=== PATIENT | female | born 1985 | race Caucasian/White ===

== ENCOUNTER 2018-09-10 10:10 | Emergency (ER) | payer BC ==
--- OUTSIDE RECORDS SUMMARY | 2018-09-10 10:19 | XMS REPORT ---
:1985 External Reference #:[id number] Author Organization [facility] Address [address], [address] [place] [address] Phone [phone] Care Team Providers Name Role Phone Yuliana Argueta, AMBROCIOBC, CIVIL PROJECT ENGINEER, Ibdedra Care Team Information Foundation Director Unavailable Yuliana Argueta, AMENA, CIVIL PROJECT ENGINEER, Ibclc Primary Care Physician Unavailable Payers Type Date Identification Numbers Payment Provider Subscriber Commercial Effective: Policy Number: Brandt Melendez 2011 [id number] Group Name: [facility] [address] [address] PayID: [id number] [place] [address] Problems Date Description Provider Status Onset: 03/19/2012 Langston's esophagus Heaven Vivas VICE CHAIRMAN Active Onset: 03/19/2012 Hypothyroidism Heaven Vivas NP Active Onset: 03/19/2012 Gastroesophageal reflux disease Heaven Vivas NP Active Onset: 05/22/2018 Gastro-esophageal reflux disease with Leo Luna MD Active esophagitis Onset: 05/22/2018 Atrophic gastritis Leo Luna MD Active Onset: 05/22/2018 Diaphragmatic hernia Leo Luna MD Active Onset: 04/17/2018 Helicobacter pylori Leo Luna MD Active Onset: 04/17/2018 Sore throat symptom Leo Luna MD Active Family History Date Family Member(s) Problem(s) Comments Onset: (2011) General H-Pylori General Thyroid Nodules Father Langston's Mother Diverticulitis Maternal Grandmother due to () Diverticulitis Aunt Unknown Aunt pedigree diagram drawn out Document: 01/08/18 - and scanned to chart Family Tree/HX Social History Type Date Description Comments Marital Status Lives With Lives With Daughter Lives With Son Home Environment Lives With Spouse Diet Healthy, Well Balanced Occupation Teacher Work Status Currently Working ADL's/IADL's Independent with all ADL's Cigarette Use Never Smoked Cigarettes Smokeless Tobacco Never Used Smokeless Tobacco ETOH Use Drinks Alcoholic Beverages Rarely Smoking Patient denies history of smoking Recreational Drug Use Never Used Drugs Daily Caffeine Consumes on average 1 cup of regular coffee per day Allergies, Adverse Reactions, Alerts Date Description Reaction Status Severity Comments 01/16/2015 NKDA active Medications Medication Date Status Form Strength Qnty SIG Indications Ordering Provider Mucinex 09/02 Active Tablets ER 600mg 30tab 1 tab by J06.9 Nohemi 12HR s mouth twice a MD Dante day congestion take with lots of fluids Saline Nasal 09/02 Active Solution 0.65% 1unit 2 sprays J06.9 Nohemi Pace s intranasal MD Dante every 2 hours congestion or nasal dryness Levothyroxine 06/02 Active Tablets 88mcg 90tab 1 tab by Kendall s mouth every Yuliana, morning one PNP-BC, an empty CIVIL PROJECT ENGINEER, stomach. do Ibclc not eat for 60mins after. Multi For Her Active Tablets 1 tab by Unknown /0000 mouth every daily Vitamin D-1000 Active Tablets 1000Unit 1 by mouth Unknown Maximum /0000 every day Strength Ketoconazole 04/07 Hx Shampoo 2% 120ml use it twice L21.0 Kendall a week Yuliana, - PNP-BC, 05/22 CIVIL PROJECT ENGINEER Ibclc Ibuprofen 11/05 Hx Tablets 800mg 60tab 1 tab by S92.592A Kendall s mouth three Yuliana - times a day PNP-BC, 05/22 as needed CIVIL PROJECT ENGINEER Ibclc Ibuprofen 10/02 Hx Tablets 600mg 30tab 1 tab three Kendall s times a day Yuliana, - for 7 days PNP-BC, 05/22 then as CIVIL PROJECT ENGINEER needed Ibclc Keflex 10/02 Hx Capsules 500mg 28cap 1 by mouth Kendall s four times a Yuliana, - day for 7 PNP-BC, 05/22 days CIVIL PROJECT ENGINEER Ibclc Augmentin 07/29 Hx Tablets 875-125mg 20tab 1 tab by Kendall, s mouth twice a Yuliana, - day for 10 PNP-BC, 10/02 days CIVIL PROJECT ENGINEER, Ibclc Work 01/14 Hx Myrtle january Elier return to [place] - work MD taylor 07/2501/22/16 with no restrictions Work 12/03 Hx on 11/27/15. [place] Whatley won't be able MD 07/25 to return to work until 01/22/16. Percocet 11/28 Hx Tablets 5-325mg 30tab 1 - 2 by Elier s mouth q4 [facility] for MD 01/14 pain as needed reference #: [id number] Work 10/25 Hx Myrtle january Elier not work as [place] - of 11/13/15 , 07/25 until approx 01/17/16 Physical 09/20 Hx PT for low Thapa, back pain in [place] - . MD 07/25 Work 09/12 Hx Due to an illness [place] brasher MD 09/20 not able to work 09/12 and 09/13 Azithromycin 09/11 Hx Tablets 500mg 7tabs 1 by mouth Elier, every day [place] Whatley MD 09/25 Macrobid 07/04 Hx Capsules 100mg 20cap 1 by mouth Elier, s twice a day [place] Whatley MD 07/14 Rhinocort Aqua 05/25 Hx Suspension 32mcg/Act 8.6g 2 sprays each Elier , nostril once [place] - a MD belkis 09/25 Benzonatate 01/16 Hx Capsules 200mg 15cap one tablet by 786.2 Thong, s mouth every 8 Jenniferl - hours as eigh, CIVIL PROJECT ENGINEER 02/03 needed cough Levothyroxine 01/06 Hx Tablets 50mcg 90tab 1 by mouth Kentrell Amaya s every day Phylicia Bro M.D. 06/02 Amitriptyline 03/17 Hx Tablets 25mg 30tab 1 tab by Elier s mouth every [place] - at bedtime , 01/16 00 Hx 1 tab daily Alexandroune, Lyles Light /0000 WOLF Shay 10/[address] 40mg 1 by mouth Unknown Sodium /0000 every day - 09/02 Immunizations CPT Code Status Date Vaccine Lot # [id number] Given 08/21/2017 Influenza Virus Vacc[place] [id number] Given 08/21/2017 Influenza Virus Vaccine Quadrivalent Iiv4 [place] [id number] [id number] Given 10/25/2015 Tdap injection [id number] Given 07/26/2015 Influenza Vaccine (Fluzone) Age 3 And Older [id number] Given 12/30/2012 Tdap injection [id number] Given 08/03/2012 flu vaccination Vital Signs Date Vital Result Comment 09/02/2018 BP Systolic 104 mmHg BP Diastolic 62 mmHg Body Temperature 98.3 F Heart Rate 104 /min Respiratory Rate 18 /min Height 69 inches 5'9" Weight 180.00 lb BMI (Body Mass Index) 26.6 kg/m2 BSA (Body Surface Area) 1.98 m2 [place] body weight in kilograms 66 O2 % BldC Oximetry 99 % 05/22/2018 BP Systolic Sitting Left Arm 120 mmHg BP Diastolic Sitting Left Arm 74 mmHg Heart Rate 72 /min Respiratory Rate 16 /min Height 69 inches 5'9" Weight 180.00 lb BMI (Body Mass Index) 26.6 kg/m2 BSA (Body Surface Area) 1.98 m2 [place] body weight in kilograms 66 04/17/2018 BP Systolic 110 mmHg BP Diastolic 68 mmHg Heart Rate 58 /min Respiratory Rate 16 /min Height 69 inches 5'9" Weight 182.00 lb BMI (Body Mass Index) 26.9 kg/m2 BSA (Body Surface Area) 1.98 m2 [place] body weight in kilograms 66 O2 % BldC Oximetry 98 % Pain Level 0 04/07/2018 BP Systolic 98 mmHg BP Diastolic 60 mmHg Body Temperature 97.8 F Heart Rate 61 /min Respiratory Rate 16 /min Height 69 inches 5'9" Weight 185.00 lb BMI (Body Mass Index) 27.3 kg/m2 BSA (Body Surface Area) 2.00 m2 [place] body weight in kilograms 66 O2 % BldC Oximetry 98 % 01/08/2018 BP Systolic Sitting Left Arm 108 mmHg BP Diastolic Sitting Left Arm 66 mmHg Heart Rate 65 /min Respiratory Rate 16 /min Height 69 inches 5'9" Weight 187.00 lb BMI (Body Mass Index) 27.6 kg/m2 BSA (Body Surface Area) 2.01 m2 [place] body weight in kilograms 66 05/22/2017 BP Systolic 118 mmHg BP Diastolic 86 mmHg Heart Rate 70 /min Height 69 inches 5'9" Weight 185.00 lb BMI (Body Mass Index) 27.3 kg/m2 BSA (Body Surface Area) 2.00 m2 [place] body weight in kilograms 66 10/02/2016 BP Systolic 127 mmHg BP Diastolic 57 mmHg Body Temperature 98.7 F Heart Rate 82 /min Respiratory Rate 16 /min Height 69 inches 5'9" Weight 181.00 lb BMI (Body Mass Index) 26.7 kg/m2 BSA (Body Surface Area) 1.98 m2 [place] body weight in kilograms 66 Last Menstrual Period [id number] O2 % BldC Oximetry 98 % 07/25/2016 BP Systolic Sitting Left Arm 100 mmHg BP Diastolic Sitting Left Arm 56 mmHg Body Temperature 98.7 F Heart Rate 60 /min Respiratory Rate 16 /min Height 69 inches 5'9" Weight 177.00 lb BMI (Body Mass Index) 26.1 kg/m2 BSA (Body Surface Area) 1.96 m2 Last Menstrual Period [id number] 04/04/2016 BP Systolic Sitting Left Arm 90 mmHg BP Diastolic Sitting Left Arm 58 mmHg Body Temperature 100.1 F Height 69 inches 5'9" Weight 173.12 lb BMI (Body Mass Index) 25.6 kg/m2 BSA (Body Surface Area) 1.94 m2 [place] body weight in kilograms 66 01/15/2016 BP Systolic Sitting Left Arm 114 mmHg BP Diastolic Sitting Left Arm 72 mmHg Height 69 inches 5'9" Weight 176.00 lb BMI (Body Mass Index) 26.0 kg/m2 BSA (Body Surface Area) 1.96 m2 11/22/2015 BP Systolic 102 mmHg BP Diastolic 70 mmHg Height 69 inches 5'9" Weight 212.50 lb BMI (Body Mass Index) 31.4 kg/m2 BSA (Body Surface Area) 2.12 m2 11/16/2015 BP Systolic 100 mmHg BP Diastolic 70 mmHg Height 69 inches 5'9" Weight 210.38 lb BMI (Body Mass Index) 31.1 kg/m2 BSA (Body Surface Area) 2.11 m2 11/08/2015 BP Systolic 116 mmHg BP Diastolic 74 mmHg Height 69 inches 5'9" Weight 210.12 lb BMI (Body Mass Index) 31.0 kg/m2 BSA (Body Surface Area) 2.11 m2 11/01/2015 BP Systolic 126 mmHg BP Diastolic 72 mmHg Height 68 inches 5'8" Weight 209.00 lb BMI (Body Mass Index) 31.8 kg/m2 BSA (Body Surface Area) 2.08 m2 10/25/2015 BP Systolic 126 mmHg BP Diastolic 62 mmHg Height 69 inches 5'9" Weight 206.38 lb BMI (Body Mass Index) 30.5 kg/m2 BSA (Body Surface Area) 2.09 m2 10/10/2015 BP Systolic 138 mmHg BP Diastolic 78 mmHg Height 69 inches 5'9" Weight 202.38 lb BMI (Body Mass Index) 29.9 kg/m2 BSA (Body Surface Area) 2.08 m2 10/06/2015 BP Systolic 108 mmHg BP Diastolic 68 mmHg Body Temperature 98.6 F Height 68 inches 5'8" Weight 200.00 lb BMI (Body Mass Index) 30.4 kg/m2 BSA (Body Surface Area) 2.04 m2 09/25/2015 BP Systolic 110 mmHg BP Diastolic 60 mmHg Height 68 inches 5'8" Weight 198.38 lb BMI (Body Mass Index) 30.2 kg/m2 BSA (Body Surface Area) 2.04 m2 09/12/2015 BP Systolic 136 mmHg BP Diastolic 78 mmHg Body Temperature 99.2 F Height 68 inches 5'8" Weight 199.00 lb BMI (Body Mass Index) 30.3 kg/m2 BSA (Body Surface Area) 2.04 m2 09/06/2015 BP Systolic Sitting Left Arm 112 mmHg BP Diastolic Sitting Left Arm 66 mmHg Body Temperature 98.0 F Heart Rate 78 /min Respiratory Rate 19 /min Height 68 inches 5'8" Weight 199.00 lb BMI (Body Mass Index) 30.3 kg/m2 BSA (Body Surface Area) 2.04 m2 08/29/2015 BP Systolic 120 mmHg BP Diastolic 78 mmHg Height 68 inches 5'8" Weight 199.50 lb BMI (Body Mass Index) 30.3 kg/m2 BSA (Body Surface Area) 2.04 m2 07/26/2015 BP Systolic 116 mmHg BP Diastolic 90 mmHg Height 69 inches 5'9" Weight 192.00 lb BMI (Body Mass Index) 28.4 kg/m2 BSA (Body Surface Area) 2.03 m2 06/22/2015 BP Systolic 124 mmHg BP Diastolic 78 mmHg Height 69 inches 5'9" Weight 183.00 lb BMI (Body Mass Index) 27.0 kg/m2 BSA (Body Surface Area) 1.99 m2 05/25/2015 BP Systolic 118 mmHg BP Diastolic 70 mmHg Height 69 inches 5'9" Weight 181.38 lb BMI (Body Mass Index) 26.8 kg/m2 BSA (Body Surface Area) 1.98 m2 04/25/2015 BP Systolic 108 mmHg BP Diastolic 74 mmHg Height 69 inches 5'9" Weight 180.38 lb BMI (Body Mass Index) 26.6 kg/m2 BSA (Body Surface Area) 1.98 m2 Last Menstrual Period [id number] 03/22/2015 BP Systolic 108 mmHg BP Diastolic 70 mmHg Height 69 inches 5'9" Weight 178.00 lb BMI (Body Mass Index) 26.3 kg/m2 BSA (Body Surface Area) 1.97 m2 Last Menstrual Period [id number] ? 01/16/2015 BP Systolic Sitting Left Arm 110 mmHg BP Diastolic Sitting Left Arm 64 mmHg Body Temperature 98.3 F Height 69 inches 5'9" Weight 176.00 lb BMI (Body Mass Index) 26.0 kg/m2 BSA (Body Surface Area) 1.96 m2 10/13/2014 BP Systolic 126 mmHg BP Diastolic 70 mmHg Height 69 inches 5'9" Weight 172.00 lb 08/10/2013 BP Systolic 108 mmHg BP Diastolic 64 mmHg Body Temperature 97.4 F Height 69 inches 5'9" Weight 156.00 lb 08/06/2013 BP Systolic 116 mmHg BP Diastolic 72 mmHg Body Temperature 99.3 F Height 69 inches 5'9" Weight 157.00 lb 04/14/2013 BP Systolic 118 mmHg BP Diastolic 80 mmHg Height 69 inches 5'9" Weight 150.00 lb 03/15/2013 BP Systolic 116 mmHg BP Diastolic 74 mmHg Height 69 inches 5'9" Weight 160.00 lb 03/10/2013 BP Systolic 118 mmHg BP Diastolic 72 mmHg Body Temperature 99.4 F Height 69 inches 5'9" Weight 158.00 lb 09/04/2012 BP Systolic 104 mmHg BP Diastolic 78 mmHg Body Temperature 99.8 F Height 69 inches 5'9" Weight 157.00 lb 06/16/2012 BP Systolic 110 mmHg BP Diastolic 64 mmHg Height 69 inches 5'9" Weight 146.00 lb 05/27/2012 BP Systolic 124 mmHg BP Diastolic 70 mmHg Height 68 inches 5'8" Weight 143.00 lb 04/20/2012 BP Systolic 104 mmHg BP Diastolic 64 mmHg Body Temperature 98.2 F Height 69 inches 5'9" Weight 143.00 lb 04/02/2012 BP Systolic 110 mmHg BP Diastolic 64 mmHg Height 69 inches 5'9" Weight 144.00 lb 03/13/2012 BP Systolic 110 mmHg BP Diastolic 62 mmHg Body Temperature 98.2 F Height 69 inches 5'9" Weight 147.00 lb 05/20/2011 BP Systolic 126 mmHg BP Diastolic 72 mmHg Body Temperature 98.3 F Height 69 inches 5'9" Weight 172.00 lb Results Test Date Test Result H/L Range Note Laboratory test finding 05/05/2018 Urine HCG NEGATIVE Negative 1, 2 (Qualitative) Comprehensive Metabolic 04/07/2018 Glucose 85 mg/dL 74-106 3 Panel BUN 12 mg/dL 7-18 3 Creatinine 0.7 mg/dL 0.6-1.3 3 Glom Filtration Rate, Estimate >60 mL/min >60 3 If >60 mL/min >60 3, 4 BUN/Creat 17.1 ratio 3 Sodium 142 mmol/L 136-145 3 Potassium 3.8 mmol/L 3.5-5.1 3 Chloride 108 mmol/L High 98-107 3 Carbon Dioxide 25 mmol/L 21-32 3 Anion Gap 9 mEq/L 8-16 3 Calcium 8.6 mg/dL 8.5-10.1 3 Total Protein 7.2 g/dL 6.4-8.2 3 Albumin 3.7 g/dL 3.4-5.0 3 Globulin 3.5 g/dL 1.9-4.3 3 Alb/Glob 1.1 ratio 3 Bilirubin,Total 0.5 mg/dL 0.2-1.0 3 Sgot/Ast 20 U/L 15-37 3 SGPT/Alt 22 U/L 12-78 3 Alkaline Phosphatase 58 U/L 45-117 3 CBS W/Automated Diff 04/07/2018 White Blood Count 5.2 K/uL 3.1-10.7 3 Red Blood Count 4.49 M/uL 3.90-5.40 3 Hemoglobin 13.1 gm/dL 11.6-15.8 3 Hematocrit 39.8 % 36.0-46.1 3 Mean Cell Volume 88.6 fl 80.9-99.0 3 Mean Corpuscular HGB 29.2 pg 25.9-32.7 3 Mean Corpuscular HGB Conc 32.9 g/dL 30.8-34.3 3 Platelet Count 231 K/uL 155-360 3 Red Cell Distri Width SD 42.2 fl 3-47 3 Red Cell Distri Width %CV 13.4 % 11.7-14.4 3 Mean Platelet Volume 11.3 fL 8.9-12.4 3 Neut% 46.3 % 40.4-72.8 3 Lymph % 42.6 % High 20.0-42.0 3 [place] % 9.2 % 4.3-13.2 3 Eo% 1.5 % 0.0-6.6 3 Bas% 0.4 % 0.0-1.1 3 Neut# 2.42 K/uL 1.8-7.0 3 Lymph # 2.23 K/uL 1.0-4.0 3 [place] # 0.48 K/uL 0.3-0.9 3 Eos # 0.08 K/uL 0.0-0.5 3 Baso # 0.02 K/uL 0.0-0.1 3 Glycohemoglobin A1c 04/07/2018 Glycohemoglobin (A1c) 4.6 % 4.2-6.3 3, 5 eAG 85 mg/dL 3 LDL Cholesterol Profile 04/07/2018 Cholesterol 144 mg/dL <200 3, 6 Triglycerides 52 mg/dL <150 3, 7 HDL Cholesterol 55 mg/dL >40 3, 8 LDL-Cholesterol 79 mg/dL < 100 3, 9 Laboratory test finding 04/07/2018 Thyroid Stim Hormone 0.74 uIU/mL 0.30- 4.20 3 Vitamin D,25-Hydroxy 28.1 ng/mL Low 30.0-100.0 3, 10 Ua Routine 04/07/2018 Ua Specific [place] 1.010 1.010-1.030 Ua PH 6.0 Low 6.5-7.5 Ua Color Yellow, pale Yellow Ua Appera clear Ua WBC Negative Ua Protein Negative Negative Ua Glucose Negative Negative Ua Ketones Negative Negative Ua Bilirubin Negative Negative Ua Urobilinogen Negative Low 0.2 - 1.0 E.U./dL Ua Nitrite Negative Negative Ua Occult Blood Trace T7/TSH 05/22/2017 T3 Uptake 33 % 31-39 11 Thyroxine (T4) 14.3 g/dL High 4.7-13.3 11 T7 4.72 g/dL Low 5.0-12.0 11 Thyroid Stim Hormone 0.95 uIU/mL 0.30-4.20 11 Thyroid Antibodies 05/22/2017 Thyroglobulin Antibody 1.2 IU/mL High 0.0- 0.9 11, 12 Thyroid Peroxidase Antibodies 11 IU/mL 0-34 11, 13 Vitamin B12 And Folate 05/22/2017 Vitamin B12 335 pg/mL 193-986 11 Folic Acid 31.1 ng/mL High 3.1-17.5 11 Laboratory test 05/22/2017 Vitamin D,25-Hydroxy 30.3 ng/mL 30.0-100.0 11 , 14 finding Comprehensive 07/25/2016 Glucose 106 mg/dL 74-106 15 Metabolic Panel BUN 10 mg/dL 7-18 15 Creatinine 0.6 mg/dL 0.6-1.3 15 Glom Filtration Rate, Estimate >60 mL/min >60 15 If >60 mL/min >60 15, 16 BUN/Creat 16.6 ratio 15 Sodium 141 mmol/L 136-145 15 Potassium 3.3 mmol/L Low 3.5-5.1 15 Chloride 106 mmol/L 98-107 15 Carbon Dioxide 29 mmol/L 21-32 15 Anion Gap 6 mEq/L Low 8-16 15 Calcium 8.7 mg/dL 8.5-10.1 15 Total Protein 6.9 g/dL 6.4-8.2 15 Albumin 3.5 g/dL 3.4-5.0 15 Globulin 3.4 g/dL 1.9-4.3 15 Alb/Glob 1.0 ratio 15 Bilirubin,Total 0.3 mg/dL 0.2-1.0 15 Sgot/Ast 16 U/L 15-37 15 SGPT/Alt 19 U/L 12-78 15 Alkaline Phosphatase 83 U/L 45-117 15 Reflex add FT3? N 15 Reflex add FT4? Y 15 TSH Reflex FT4 And/Or FT3 07/25/2016 Thyroid Stim Hormone 1.41 uIU/mL 0.30-4.20 15 Reflex add FT3? N 15 Reflex add FT4? Y 15 Laboratory test 01/15/2016 Cytopathology Results on file 17 finding Cervix/Vagina Laboratory test 01/15/2016 Cytology Interface SEE RESULT 18, 19 finding Order BELOW Laboratory test 10/25/2015 Vaginal Strep Screen See Note 20 finding Chlamydia/GC 10/25/2015 Chlamydia Negative Negative Amplification Trachomatis, Jeanette Neisseria Gonorrhoeae, Jeanette Negative Negative Please note: See Note 21 Laboratory test finding 10/10/2015 Thyroid Stim Hormone 0.54 uIU/mL 0.36- 3.74 Free T4 1.07 ng/dL 0.76-1.46 Laboratory test 10/06/2015 Urine Culture See Note 22 finding Laboratory test 09/10/2015 Rapid Strep Negative Negative 23 finding Molecular Laboratory test 09/10/2015 Throat Beta Strep SEE RESULT BELOW 24 finding Culture Laboratory test 09/06/2015 Throat Strep Screen See Note 25 finding Hemoglobin/Hematocrit 08/29/2015 Hemoglobin 12.0 gm/dL 11.6-15.8 Hematocrit 36.4 % 36.0-46.1 Glucose,1 HR Post Glucola 08/29/2015 1 HR Glucose,Post Glucola 95 mg/dL - 138 26 1 Hour Urine Glucose See Note % Negative 27 1 Hour Urine Ketone See Note Negative 28 Laboratory test finding 08/29/2015 Antibody Screen Negative Negative Thyroid Stim Hormone 0.93 uIU/mL 0.36-3.74 Free T4 1.13 ng/dL 0.76-1.46 CBS W/Automated Diff 04/25/2015 White Blood Count 9.3 K/uL 3.1-10.7 Red Blood Count 4.51 M/uL 3.90-5.40 Hemoglobin 13.4 gm/dL 11.6-15.8 Hematocrit 40.3 % 36.0-46.1 Mean Cell Volume 89.4 fl 80.9-99.0 Mean Corpuscular HGB 29.7 pg 25.9-32.7 Mean Corpuscular HGB Conc 33.3 g/dL 30.8-34.3 Platelet Count 251 K/uL 155-360 Red Cell Distri Width SD 42.8 fl 3-47 Red Cell Distri Width %CV 13.4 % 11.7-14.4 Mean Platelet Volume 11.8 fL 8.9-12.4 Neut% 58.5 % 40.4-72.8 Lymph % 30.4 % 17.0-46.1 [place] % 9.4 % 4.3-13.2 Eo% 1.5 % 0.0-6.6 Bas% 0.2 % 0.0-1.1 Neut# 5.44 K/uL 1.0-7.0 Lymph # 2.83 K/uL 1.8-7.0 [place] # 0.87 K/uL 0.3-0.9 Eos # 0.14 K/uL 0.0-0.5 Baso # 0.02 K/uL 0.0-0.1 Laboratory test finding 04/25/2015 Rapid Plasma Reagin NONREACTIVE NONREACTIVE 29 Hepatitis B Surface Antigen Nonreactive Nonreactive 30 Varicella-Zoster Virus IgG Ab 726 Immune>165ind 31 Antibody Detection See Note 32 Lead,Blood (Adult) 1 g/dL 0-19 33 Urine Culture See Note 34 Genital Culture W/ Gram Stain 04/25/2015 Gram Stain See Note 35 Genital Culture See Note 36 Chlamydia/GC Jeanette 04/25/2015 Chlamydia Trachomatis, Jeanette Negative Negative Neisseria Gonorrhoeae, Jeanette Negative Negative Please note: See Note 37 Rubella IgG Antibody 04/25/2015 Rubella IgG Antibody Reactive Reactive Rubella IgG Iu/ml > 500.0 IU/mL >=10.0 38 Type And Screen 04/25/2015 Patient Blood Type O NEG Antibody Screen Negative Negative Laboratory test finding 01/16/2015 Throat Strep Screen See Note 39 Laboratory test finding 10/13/2014 Alternaria Tenuis <0.10 Class 0 kU/L Apergillis Fumigatus Ige <0.10 Class 0 kU/L Miky,White <0.10 Class 0 kU/L Bahia Grass 0.33 ClassIkU/L High Beef <0.10 Class 0 kU/L B[place] Grass <0.10 Class 0 kU/L Birch,White 0.38 ClassIkU/L High [place] 0.94 ClassIIkU/L High Cat Hair/Dander 0.11 Class0/IkU/L High [place] <0.10 Class 0 kU/L Chocolate/Pierce F052 <0.10 Class 0 kU/L 40 Cladosporium Herbarum <0.10 Class 0 kU/L Cockroach,Taiwanese <0.10 Class 0 kU/L Branch <0.10 Class 0 kU/L D Farinae Mite 1.24 ClassIIkU/L High D Pteronyssinus 1.40 ClassIIkU/L High Dog Hair/Dander <0.10 Class 0 kU/L Egg (Whole) <0.10 Class 0 kU/L Elm,Tai[place]ese (White) <0.10 Class 0 kU/L Fish/Shell Mix Negative k/Ul . 41 Hazelnut Tree 0.13 Class0/IkU/L High Dixon,White <0.10 Class 0 kU/L Maple/Gardiner Ige T001 0.26 Class0/IkU/L High 42 Milk (Cow) <0.10 Class 0 kU/L Mucor Racemosus <0.10 Class 0 kU/L Mugwort 1.16 ClassIIkU/L High [place],White <0.10 Class 0 kU/L Nettle <0.10 Class 0 kU/L [place],White 0.13 Class0/IkU/L High Peanut <0.10 Class 0 kU/L Penicillium Not <0.10 Class 0 kU/L Pigweed,Rough <0.10 Class 0 kU/L Plantain,Canadian <0.10 Class 0 kU/L Pork <0.10 Class 0 kU/L Ragweed,Short/ 6.40 ClassIVkU/L High Sheep [place] (DO <0.10 Class 0 kU/L Soybean <0.10 Class 0 kU/L Stemphylium Bot <0.10 Class 0 kU/L Thyroid Stim Hormone 1.64 uIU/mL 0.36-3.74 Thyroxine (T4) 12.6 g/dL 4.7-13.5 Wheat <0.10 Class 0 kU/L mRast Class (Text Only) See Note 43 Basic Metabolic Panel 10/13/2014 Anion Gap 10 mEq/L 8-16 BUN 13 mg/dL 7-18 BUN/Creat 21.6 ratio Calcium 8.9 mg/dL 8.5-10.1 Carbon Dioxide 27 mmol/L 21-32 Chloride 106 mmol/L 98-107 Creatinine 0.6 mg/dL 0.6-1.3 Glom Filtration Rate, Estimate >60 mL/min >60 Glucose 106 mg/dL 74-106 If >60 mL/min >60 44 Potassium 3.8 mmol/L 3.5-5.1 Sodium 139 mmol/L 136-145 CBC W/Automated Diff 10/13/2014 Bas% 0.3 % 0.0-1.1 Baso # 0.03 K/uL 0.0-0.1 Eo% 1.4 % 0.0-6.6 Eos # 0.13 K/uL 0.0-0.5 Hematocrit 42.0 % 36.0-46.1 Hemoglobin 13.8 gm/dL 11.6-15.8 Lymph # 2.97 K/uL 0.8-3.4 Lymph % 32.1 % 17.0-46.1 Mean Cell Volume 88.4 fl 80.9-99.0 Mean Corpuscular HGB 29.1 pg 25.9-32.7 Mean Corpuscular HGB Conc 32.9 g/dL 30.8-34.3 Mean Platelet Volume 11.7 fL 8.9-12.4 [place] # 0.97 K/uL High 0.3-0.9 [place] % 10.5 % 4.3-13.2 Neut# 5.15 K/uL 1.0-7.0 Neut% 55.7 % 40.4-72.8 Platelet Count 246 K/uL 155-360 Red Blood Count 4.75 M/uL 3.90-5.40 Red Cell Distri Width %CV 13.3 % 11.7-14.4 Red Cell Distri Width SD 41.9 fl 3-47 White Blood Count 9.3 K/uL 3.1-10.7 Laboratory test finding 10/13/2014 ThinPrep Pap: Cervix/Endocx See Note 45 Laboratory test finding 08/07/2014 Bas% 0.5 % 0.0-1.1 Baso # 0.03 K/uL 0.0-0.1 Eo% 1.7 % 0.0-6.6 Eos # 0.10 K/uL 0.0-0.5 HCG,Serum(Qualitative) Negative (Negative) Hematocrit 41.5 % 36.0-46.1 Hemoglobin 13.7 gm/dL 11.6-15.8 Lipase 121 U/L 73-393 Lymph # 1.98 K/uL 0.8-3.4 Lymph % 34.4 % 17.0-46.1 Mean Cell Volume 89.6 fl 80.9-99.0 Mean Corpuscular HGB 29.6 pg 25.9-32.7 Mean Corpuscular HGB Conc 33.0 g/dL 30.8-34.3 Mean Platelet Volume 10.9 fL 8.9-12.4 [place] # 0.54 K/uL 0.3-0.9 [place] % 9.4 % 4.3-13.2 Neut# 3.11 K/uL 1.0-7.0 Neut% 54.0 % 40.4-72.8 Platelet Count 262 K/uL 155-360 Red Blood Count 4.63 M/uL 3.90-5.40 Red Cell Distri Width %CV 12.9 % 11.7-14.4 Red Cell Distri Width SD 41.5 fl 3-47 Urine Screen See Note 46 White Blood Count 5.8 K/uL 3.1-10.7 Comprehensive Metabolic Panel 08/07/2014 Alb/Glob 1.0 ratio Albumin 3.6 g/dL 3.4-5.0 Alkaline Phosphatase 71 U/L 45-117 Anion Gap 8 mEq/L 8-16 BUN 11 mg/dL 7-18 BUN/Creat 15.7 ratio Bilirubin,Total 0.3 mg/dL 0.2-1.0 Calcium 8.8 mg/dL 8.5-10.1 Carbon Dioxide 29 mmol/L 21-32 Chloride 107 mmol/L 98-107 Creatinine 0.7 mg/dL 0.6-1.3 Globulin 3.6 g/dL 1.9-4.3 Glom Filtration Rate, Estimate >60 mL/min >60 Glucose 82 mg/dL 74-106 If >60 mL/min >60 47 Potassium 3.8 mmol/L 3.5-5.1 SGPT/Alt 19 U/L 12-78 Sgot/Ast 16 U/L 15-37 Sodium 140 mmol/L 136-145 Total Protein 7.2 g/dL 6.4-8.2 Urinalysis With Microscopic 08/07/2014 Urine Bacteria Few None Seen Urine Bilirubin - Dipstick Negative Negative Urine Blood Negative Negative Urine Clarity Clear Clear Urine Color Straw Yellow Urine Epithelial Cells Few None Seen /lpf Urine Glucose - Dipstick Negative mg/dL Negative Urine Ketone Negative mg/dL Negative Urine Leuk Esterase Trace High Negative Urine Nitrite - Dipstick Negative Negative Urine PH 6.5 6.5-7.5 Urine Protein - Dipstick Negative mg/dL Negative Urine RBC 0-2 rbc/hpf 0-7 Urine Specific [place] <=1.005 Low 1.010-1.030 Urine Urobilinogen - Dipstick 0.2 E.U./dL 0.2-1.0 Urine WBC 2-5 wbc/hpf 0-7 Laboratory test finding 03/17/2014 Urine Culture See Note 48 Laboratory test finding 01/03/2014 Thyroid Stim Hormone 2.91 uIU/mL 0.49- 4.67 Laboratory test finding 12/12/2013 HCG, Quant < 1.0 mIU/mL 49 Laboratory test finding 12/11/2013 Bas% 0.5 % 0.0-1.1 Baso # 0.04 K/uL 0.0-0.1 Eo% 2.1 % 0.0-6.6 Eos # 0.17 K/uL 0.0-0.5 Hematocrit 39.5 % 36.0-46.1 Hemoglobin 12.9 gm/dL 11.6-15.8 Lipase 199 U/L 28-380 Lymph # 3.50 K/uL High 0.8-3.4 Lymph % 42.6 % 17.0-46.1 Mean Cell Volume 90.0 fl 80.9-99.0 Mean Corpuscular HGB 29.4 pg 25.9-32.7 Mean Corpuscular HGB Conc 32.7 g/dL 30.8-34.3 Mean Platelet Volume 11.1 fL 8.9-12.4 [place] # 0.82 K/uL 0.3-0.9 [place] % 10.0 % 4.3-13.2 Neut# 3.68 K/uL 1.0-7.0 Neut% 44.8 % 40.4-72.8 Platelet Count 235 K/uL 155-360 Red Blood Count 4.39 M/uL 3.90-5.40 Red Cell Distri Width %CV 13.0 % 11.7-14.4 Red Cell Distri Width SD 41.6 fl 3-47 White Blood Count 8.2 K/uL 3.1-10.7 Comprehensive Metabolic Panel 12/11/2013 Alb/Glob 1.1 ratio Albumin 3.6 g/dL 3.5-5.0 Alkaline Phosphatase 78 U/L 50-136 Anion Gap 10 mEq/L 8-16 BUN 18 mg/dL 5-23 BUN/Creat 36.0 ratio Bilirubin,Total 0.3 mg/dL 0.2-1.2 Calcium 8.9 mg/dL 8.5-10.1 Carbon Dioxide 27 mEq/L 18-29 Chloride 109 mmol/L High 98-107 Creatinine 0.5 mg/dL 0.5-1.4 Globulin 3.2 g/dL 1.9-4.3 Glom Filtration Rate, Estimate >60 mL/min >60 Glucose 83 mg/dL 76-115 If >60 mL/min >60 50 Potassium 3.7 mmol/L 3.5-5.1 SGPT/Alt 19 U/L Low 30-65 Sgot/Ast 13 U/L Low 16-40 Sodium 142 mmol/L 136-145 Total Protein 6.8 g/dL 6.3-8.0 Laboratory test finding 12/11/2013 Urine HCG (Qualitative) Negative Negative 51 Urine Screen 12/11/2013 Urine Bilirubin - Dipstick Negative Negative Urine Blood Negative Negative Urine Clarity Clear Clear Urine Color Yellow Yellow Urine Glucose - Dipstick Negative mg/dL Negative Urine Ketone Negative mg/dL Negative Urine Leuk Esterase Negative Negative Urine Nitrite - Dipstick Negative Negative Urine PH 5.5 Low 6.5-7.5 Urine Protein - Dipstick Negative mg/dL Negative Urine Specific [place] 1.020 1.010-1.030 Urine Urobilinogen - Dipstick 0.2 E.U./dL 0.2-1.0 Laboratory test finding 08/06/2013 Throat Culture (See Note) 52 Laboratory test finding 04/14/2013 Thyroid Stim Hormone 0.79 uIU/mL 0.49- 4.67 Thyroxine (T4) 12.6 g/dL 5.3-14.8 CBC 04/14/2013 Hematocrit 38.7 % 36.0-46.1 Hemoglobin 12.8 gm/dL 11.6-15.8 Mean Cell Volume 90.4 fl 80.9-99.0 Mean Corpuscular HGB 29.9 pg 25.9-32.7 Mean Corpuscular HGB Conc 33.1 g/dL 30.8-34.3 Mean Platelet Volume 11.4 fL 8.9-12.4 Platelet Count 277 K/uL 155-360 Red Blood Count 4.28 M/uL 3.90-5.40 Red Cell Distri Width %CV 13.5 % 11.7-14.4 White Blood Count 7.3 K/uL 3.1-10.7 CBC With Manual Diff 03/10/2013 Abs Basophils 0 10^3/uL 0-0.2 Abs Eosinophils 0.2 10^3/uL 0-0.6 Abs Lymphocytes 2.6 10^3/uL 1.0-4.8 Abs Monocytes 0.7 10^3/uL 0-0.8 Abs Neutrophils 5.0 10^3/uL 1.5-7.7 Abs Nucleated RBC 0.01 10^3/uL Eosinophils % 2 % 0-6 Hematocrit 40 % 35-47 Hemoglobin 13.5 g/dL 12.0-16.0 Lymphocytes % 38 % 25-47 Mean Corpuscular HGB Conc 34 g/dL 31-36 Mean Corpuscular Hemoglobin 31 pg 27-31 Mean Corpuscular Volume 91 fL 80-97 Mean Platelet Volume 9 um3 7.4-10.4 Monocytes % 4 % 0-13 Neutrophil % 55 % 38-83 Platelet Count 228 10^3/uL 150-450 RBC Morphology Normal Normal Reactive Lymph % 1 % 0-6 Red Blood Count 4.43 10^6/uL 4.0-5.4 Red Cell Distribution Width 14 % 10.5-15 White Blood Count 8.5 10^3/uL 4.8-10.8 Comp Metabolic Panel 03/10/2013 Albumin 4.1 g/dL 3.6-5.4 Albumin/Globulin Ratio 1.6 1-3 Alkaline Phosphatase 79 U/L 30-110 Alt 110 U/L High 14-54 Anion Gap 9.0 mmol/L 2-11 Ast 66 U/L High 12-42 BUN/Creatinine Ratio 15.0 8-20 Blood Urea Nitrogen 12 mg/dL 6-24 Calcium 9.5 mg/dL 8.1-9.9 Chloride 104 mmol/L 101-111 Co2 Carbon Dioxide 27.0 mmol/L 22-32 Creatinine 0.80 mg/dL 0.50-1.40 Egfr 109.1 >60 53 Egfr Non- 84.8 >60 Globulin 2.6 g/dL 2-4 Glucose 87 mg/dL 70-100 Potassium 4.0 mmol/L 3.5-5.0 Sodium 140 mmol/L 133-145 Total Bilirubin 0.6 mg/dL 0.4-1.5 Total Protein 6.7 g/dL 6.2-8.1 Urine Culture And Sensitivities 03/10/2013 Urine Culture (See Note) 54 Laboratory test finding 01/29/2013 Screen Negative 55 Laboratory test finding 01/27/2013 Antibody Identification Rhogam D Free T4 1.11 ng/dL 0.71-1.85 Rapid Plasma Reagin Nonreactive Nonreactive 56 Thyroid Stim Hormone 0.78 uIU/mL 0.49-4.67 CBC 01/27/2013 Hematocrit 40.5 % 36.0-46.1 Hemoglobin 13.7 gm/dL 11.6-15.8 Mean Cell Volume 92.0 fl 80.9-99.0 Mean Corpuscular HGB 31.1 pg 25.9-32.7 Mean Corpuscular HGB Conc 33.8 g/dL 30.8-34.3 Mean Platelet Volume 11.9 fL 8.9-12.4 Platelet Count 185 K/uL 155-360 Red Blood Count 4.40 M/uL 3.90-5.40 Red Cell Distri Width %CV 14.2 % 11.7-14.4 White Blood Count 13.1 K/uL High 3.1-10.7 Type And Screen 01/27/2013 Antibody Screen Positive High Negative Patient Blood Type O Neg Laboratory test finding 12/30/2012 Free T4 1.09 ng/dL 0.71-1.85 Thyroid Stim Hormone 0.72 uIU/mL 0.49-4.67 Laboratory test finding 12/23/2012 Vaginal Strep Screen See Note 57 Dna Probe N. Gono + C. Trach. 12/23/2012 Dna Probe For Chlamydia See Note 58 Trac. Dna Probe For N. Gonorrhoeae See Note 59 Laboratory test finding 12/09/2012 T4 13.5 ug/mL High 5.0-12.0 TSH (Thyroid Stimulating Horm) 0.72 miu/mL 0.34-5.60 Laboratory test finding 11/04/2012 1 HR Glucose,Post Glucola 88 mg/dL - 138 60 1 Hour Urine Glucose See Note % Negative 61 1 Hour Urine Ketone See Note Negative 62 Antibody Screen Negative Negative Free T4 1.09 ng/dL 0.71-1.85 Thyroid Stim Hormone 0.97 uIU/mL 0.49-4.67 Hemoglobin/Hematocrit 11/04/2012 Hematocrit 35.7 % Low 36.0-46.1 Hemoglobin 11.7 gm/dL 11.6-15.8 Laboratory test finding 08/03/2012 Hepatitis B Surface Nonreactive Nonreactive 63 Antigen Rapid Plasma Reagin Nonreactive Nonreactive 64 Hemoglobin/Hematocrit 08/03/2012 Hematocrit 38.3 % 36.0-46.1 Hemoglobin 13.0 gm/dL 11.6-15.8 Rubella IgG Antibody 08/03/2012 Rubella IgG Antibody Reactive Reactive Rubella IgG Iu/ml 372.5 IU/mL >=10.0 65 Laboratory test finding 06/29/2012 Antibody Detection See Note 66 Lead,Blood (Adult) 1 g/dL 0-19 67 Urine Culture See Note 68 Varicella-Zoster Virus IgG Ab 1.66 Immune>1.09i 69 Dna Probe N. Gono + C. 06/29/2012 Dna Probe For Chlamydia Trac. See Note 70 Trach. Dna Probe For N. Gonorrhoeae See Note 71 Genital Culture W/ Gram Stain 06/29/2012 Genital Culture See Note 72 Gram Stain See Note 73 Laboratory test finding 05/27/2012 BHCG Quantitative 42290.0 MIU/ML High 0 -5 74 TSH 1.96 MIU/ML 0.34-5.60 Type & Screen 05/27/2012 Antibody Screen Negative Patient Blood Type O Negative Laboratory test 04/20/2012 Fungal Cult Other <See 75 finding Sources Note> Laboratory test 03/13/2012 Amylase 65 U/L 20-120 76 finding Endomysial Abs Negative Negative 77 Gliadin Iga <10.0 U () 78 Gliadin Igg <10.0 U () 79 Lipase 31 U/L 22-51 Reticulin AB Negative Negative 80 TSH 0.40 MIU/ML 0.34-5.60 Thyroxine Free 1.22 ng/dL 0.61-1.24 CBC Auto Diff 03/13/2012 Abs Basophils 0 0-0.2 Abs Eosinophils 0.1 0-0.6 Abs Lymphs 2.2 1.0-4.8 Abs Mononuclear 0.7 0-0.8 Absolute Neutrophil Count 6.3 1.5-7.7 Basophil % 0.5 % 0-2 Eosinophil % 1.0 % 0-6 Gran % 67.3 % 38-83 Hematocrit 38 % 35-47 Hemoglobin 12.9 g/dL 12.0-16.0 Lymph % 23.5 % Low 25-47 Mean Corpuscular HGB Cone 34 g/dL 32-36 Mean Corpuscular Hemoglob 30 pg 27-31 Mean Corpuscular Volume 88 um3 79-97 Mean Platelet Volume 10.3 um3 7.4-10.4 Mononuclear % 7.7 % 1-9 Platelet Count 232 CUMM 150-450 Red Cell Count 4.28 CUMM 4.2-5.4 Redcell Distribution WDTH 14 % 10.5-15 White Blood Count 9.3 CUMM 4.8-10.8 H. Pylori Evaluation Quantitat 03/13/2012 H. Pylori Iga AB Negative Negative H. Pylori Igg AB <0.75 index () 81 H. Pylori Igm AB Positive Negative Comp Metabolic Panel 03/13/2012 Albumin 4.1 GM/DL 3.6-5.4 Albumin/Globulin Ratio 1.7 1-3 Alkaline Phosphatase 53 U/L 30-110 Alt (SGPT) 15 U/L 14-54 Anion Gap 4.0 mmol/L 2-11 82 Ast (Sgot) 20 U/L 12-42 BUN 8 mg/dL 6-24 BUN/Creatinine Ratio 10.0 8-20 Bilirubin Total 0.6 mg/dL 0.4-1.5 83 Calcium 9.3 mg/dL 8.1-9.9 Chloride 106 mmol/L 101-111 Co2 (Carbon Dioxide) 27.0 mmol/L 22-32 Creatinine 0.8 mg/dL 0.50-1.40 Globulin 2.4 GM/DL 2-4 Glucose 94 mg/dL 70-100 One Over Creatinine 1.25 Potassium 3.5 mmol/L 3.5-5.0 Sodium 137 mmol/L 135-145 Total Protein 6.5 GM/DL 6.2-8.1 eGFR 109.8 > 60 84 eGFR Non- 85.4 > 60 Urine Screen 09/04/2011 Urine Bilirubin - Dipstick Negative Negative Urine Blood Negative Negative Urine Clarity Clear Clear Urine Color Yellow Yellow Urine Glucose - Dipstick Negative mg/dL Negative Urine Ketone Trace mg/dL High Negative Urine Leuk Esterase Negative Negative Urine Nitrite - Dipstick Negative Negative Urine PH 5.5 Low 6.5-7.5 Urine Protein - Dipstick Negative mg/dL Negative Urine Specific [place] 1.025 1.010-1.030 Urine Urobilinogen - Dipstick 0.2 E.U./dL 0.2-1.0 Laboratory test finding 09/04/2011 Urine HCG (Qualitative) Negative Negative 85 Liver Function Tests 09/04/2011 Alb/Glob 1.2 ratio Albumin 3.6 g/dL 3.5-5.0 Alkaline Phosphatase 54 U/L 50-136 Bilirubin,Direct < 0.1 mg/dL Low 0.1-0.4 Bilirubin,Indirect 0.2 mg/dL 0.0-0.9 Bilirubin,Total 0.3 mg/dL 0.2-1.2 Globulin 3.1 g/dL 1.9-4.3 SGPT/Alt 15 U/L Low 30-65 Sgot/Ast 11 U/L Low 16-40 Total Protein 6.7 g/dL 6.3-8.0 CBS W/Automated Diff 09/04/2011 Bas% 0.3 % 0.0-1.1 Baso # 0.02 K/uL 0.0-0.1 Eo% 0.9 % 0.0-6.6 Eos # 0.06 K/uL 0.0-0.5 Hematocrit 38.3 % 36.0-46.1 Hemoglobin 12.5 gm/dL 11.6-15.8 Lymph # 1.67 K/uL 0.8-3.4 Lymph % 25.8 % 17.0-46.1 Mean Cell Volume 89.3 fl 80.9-99.0 Mean Corpuscular HGB 29.1 pg 25.9-32.7 Mean Corpuscular HGB Conc 32.6 g/dL 30.8-34.3 Mean Platelet Volume 11.2 fL 8.9-12.4 [place] # 0.68 K/uL 0.3-0.9 [place] % 10.5 % 4.3-13.2 Neut# 4.05 K/uL 1.0-7.0 Neut% 62.5 % 40.4-72.8 Platelet Count 240 K/uL 155-360 Red Blood Count 4.29 M/uL 3.90-5.40 Red Cell Distri Width %CV 12.7 % 11.7-14.4 Red Cell Distri Width SD 40.8 fl 3-47 White Blood Count 6.5 K/uL 3.1-10.7 Basic Metabolic Panel 09/04/2011 Anion Gap 13 mEq/L 8-16 BUN 10 mg/dL 5-23 BUN/Creat 11.1 ratio Calcium 8.8 mg/dL 8.5-10.1 Carbon Dioxide 24 mEq/L 18-29 Chloride 108 mmol/L High 98-107 Creatinine 0.9 mg/dL 0.5-1.4 Glom Filtration Rate, Estimate >60 mL/min >60 Glucose 91 mg/dL 76-115 If >60 mL/min >60 86 Potassium 3.6 mmol/L 3.5-5.1 Sodium 141 mmol/L 136-145 Laboratory test finding 09/04/2011 CK 153 U/L 26-190 Lipase 118 U/L 28-380 CBC Auto Diff 05/20/2011 Abs Basophils 0 0-0.2 Abs Eosinophils 0.2 0-0.6 Abs Lymphs 1.9 1.0-4.8 Abs Mononuclear 0.5 0-0.8 Absolute Neutrophil Count 3.4 1.5-7.7 Basophil % 0.7 % 0-2 Eosinophil % 2.9 % 0-6 Gran % 56.4 % 38-83 Hematocrit 42 % 35-47 Hemoglobin 14.4 g/dL 12.0-16.0 Lymph % 32.3 % 25-47 Mean Corpuscular HGB Cone 34 g/dL 32-36 Mean Corpuscular Hemoglob 30 pg 27-31 Mean Corpuscular Volume 88 um3 79-97 Mean Platelet Volume 9.6 um3 7.4-10.4 Mononuclear % 7.7 % 1-9 Platelet Count 260 CUMM 150-450 Red Cell Count 4.74 CUMM 4.2-5.4 Redcell Distribution WDTH 13 % 10.5-15 White Blood Count 6.0 CUMM 4.8-10.8 Comp Metabolic Panel 05/20/2011 Albumin 4.2 GM/DL 3.6-5.4 Albumin/Globulin Ratio 1.6 1-3 Alkaline Phosphatase 65 U/L 30-110 Alt (SGPT) 12 U/L Low 14-54 Anion Gap 4.0 mmol/L 2-11 87 Ast (Sgot) 19 U/L 12-42 BUN 9 mg/dL 6-24 BUN/Creatinine Ratio 12.9 8-20 Bilirubin Total 0.8 mg/dL 0.4-1.5 88 Calcium 9.5 mg/dL 8.1-9.9 Chloride 105 mmol/L 101-111 Co2 (Carbon Dioxide) 29.0 mmol/L 22-32 Creatinine 0.7 mg/dL 0.50-1.40 Globulin 2.6 GM/DL 2-4 Glucose 91 mg/dL 70-100 One Over Creatinine 1.42 Potassium 4.0 mmol/L 3.5-5.0 Sodium 138 mmol/L 135-145 Total Protein 6.8 GM/DL 6.2-8.1 eGFR 128.1 > 60 89 eGFR Non- 99.6 > 60 Throat-Beta Strept 05/20/2011 Throat-Beta Strep Culture NF 90 Laboratory test finding 05/20/2011 Aso (Anti Streptolysis O) (See Note) Iu 0-199 91 Monospot Negative Negative TSH 1.39 MIU/ML 0.34-5.60 Thyroxine Free 1.35 ng/dL High 0.61-1.24 1 [id number] 2 FIRST MORNING SPECIMENS GENERALLY CONTAIN THE HIGHEST CONCENTRATION OF HCG AND ARE RECOMMENDED FOR EARLY DETECTION OF . Method: [employer] One-Step Immunoassay 3 E03.9 Z00.01 K22.70 4 Note: Persistent reduction for 3 months or more in an eGFR <60 mL/min/1.73 m2 defines CKD. Patients with eGFR values >/=60 mL/min/1.73 m2 may also have CKD if evidence of persistent proteinuria is present. The original MDRD equation for estimated GFR is not valid for patients less than 18 years of age. Additional information may be found at www.kdoqi.org. 5 Elevated levels of HbA1c suggest the need for more aggressive treatment of glycemia. The [place] Diabetes Association recommends that a primary goal of therapy should be a HbA1c of <7% and that physicians should re-evaluate the treatment regimen in patients with HbA1c values consistently >8%. 6 Reference Guidelines*: Desirable: ........... < 200 mg/dL Borderline High: ..... 200-239 mg/dL High: ................ >=240 mg/dL * The National Cholesterol Education Program (NCEP) 7 Reference Guidelines*: Normal: ............. < 150 mg/dL Borderline High: .... 150-199 mg/dL High: ............... 200-499 mg/dL Very High: .......... > 500 mg/dL * Source: National Cholesterol Education Program (NCEP) 8 Reference Guidelines*: Low HDL: ..... < 40 mg/dL Normal: ..... 40-60 mg/dL Desirable: ... > 60 mg/dL *The National Cholesterol Education Program(NCEP) 9 Reference Guidelines*: Optimal:........... <100 mg/dL Near Optimal....... 100-129 mg/dL Borderline High.... 130-159 mg/dL High............... 160-189 mg/dL Very High.......... >=190 mg/dL * Source: National Cholesterol Education Program (NCEP) 10 Vitamin D deficiency has been defined by the [place]'Brien of Medicine and an Endocrine Society practice guideline as a level of serum 25-OH vitamin D less than 20 ng/mL (1,2). The Endocrine Society went on to further define vitamin D insufficiency as a level between 21 and 29 ng/mL (2). 1. IOM (O'Brien of Medicine). 2010. Dietary reference intakes for calcium and D. [place]: The National Academies Press. 2. Shannon MF, Saba NC, Clayton AGUILAR, et al. Evaluation, treatment, and prevention of vitamin D deficiency: an Endocrine Society clinical practice guideline. JCEM. 2010; 96(7):1911-30. Performed at: [facility] [id number] Mechanical Shovel Operator: Sade Villanueva MD, Phone: [phone] 11 E03.9 12 Thyroglobulin Antibody measured by [employer] Methodology 13 Performed at: [facility] [address] [id number] Mechanical Shovel Operator: Sade Villanueva MD, Phone: [phone] 14 Vitamin D deficiency has been defined by the [place]Brien of Medicine and an Endocrine Society practice guideline as a level of serum 25-OH vitamin D less than 20 ng/mL (1,2). The Endocrine Society went on to further define vitamin D insufficiency as a level between 21 and 29 ng/mL (2). 1. IOM (O[place]Brien of Medicine). 2010. Dietary reference intakes for calcium and D. [place]: The National Academies Press. 2. Shannon MF, Saba BERRY, Clayton AGUILAR, et al. Evaluation, treatment, and prevention of vitamin D deficiency: an Endocrine Society clinical practice guideline. JCEM. 2011 Mar; 96(7):1911-30. Performed at: RN - [facility] [address] [id number] Mechanical Shovel Operator: Sade Villanueva MD, Phone: [phone] 15 K46.12 N17.9 16 Note: Persistent reduction for 3 months or more in an eGFR <60 mL/min/1.73 m2 defines CKD. Patients with eGFR values >/=60 mL/min/1.73 m2 may also have CKD if evidence of persistent proteinuria is present. The original MDRD equation for estimated GFR is not valid for patients less than 18 years of age. Additional information may be found at www.kdoqi.org. 17 Report may be viewed in PCI: Medical Record Forms -> LAB-MUSHROOM GROWING SUPERVISOR Testing referred to: [place] [address] Ph.#. [phone] 18 NO TRACKING 19 SEE RESULT BELOW Name: MYRTLE MELENDEZ : [address]: Sabina Thapa MD Acct: [id number] Unit: [id number] AGE: 30 Location: [facility] Re01/15/16 SEX: F Status: REG REF SPEC: [id number] JIAN: 01/15/16-163 [facility] DR: Sabina Thapa MD REQ: [id number] RECD: 01/16/16 STATUS: SOBEIDA HINES DR: [facility], Lab _ ORDERED: IMAGE ANALYSIS COMMENTS: NO TRACKING FINAL DIAGNOSIS Negative for Intraepithelial lesion or Malignancy A. Ectocervical/Endocervical Specimen Adequacy: Satisfactory of evaluation Transformation zone component cannot be definitely identified due to presence of atrophy or other hormonal changes Patient Information: HPV: Thin Layer Pap Test w/reflex to high risk HPV RNA testing when ASCUS Actual Specimen Date: 01/15/16 Last Menstrual Date: 02/19/15 LMP If Unknown: post ?: N Previous Abnormal Pap Smears?:N Signed (signature on file) LILIANA Christensen(ASCP) 01/16 1046 This Pap test was evaluated with the assistance of the Zyncdp Test Imaging System. Due to cytologic findings at the primer charger microscope, comprehensive manual rescreening by a Air Quality Specialist may be required. The Pap Smear is a screening test designed to aid in the detection of premalignant and malignant conditions of the uterine cervix. It is not a diagnostic procedure and should not be used as the sole means of detecting cervical cancer. Both false- positive and false- negative reports do occur. Depending on your risk status, a Pap smear should be obtained and evaluated every 1-3 years. END OF REPORT * ML=Testing performed at Main Lab DEPARTMENT OF PATHOLOGY, [address] [place] [address] Ibrahima Toney M.D. Director [facility] # [id number] 20 NO GROUP B STREPTOCOCCI ISOLATED 21 A negative result for either C. trachomatis and/or N. gonorrhoeae does not preclued an infection because results are dependent on adequate specimen collection, absence of inhibitors, and sufficient DNA to be detected. A negative result for either C. trachomatis and/or N. gonorrhoeae does not preclued an infection because results are dependent on adequate specimen collection, absence of inhibitors, and sufficient DNA to be detected. 22 Organism 1 ! URETHRAL JENNIFER Quantity ! 10,000 - 50,000 CFU/mL 23 Property Adjuster: [id number] HANSEL RODGERS The cost recovery technician and regulatory agencies both recommend that a throat culture for beta strep be performed if a Rapid Group A Strep assay yields a negative result. Therefore a culture will be automatically performed on all negative samples. 24 SEE RESULT BELOW Name: ALMYRTLE : [address]: Mio Woods MD Acct: [id number] Unit: [id number] AGE: 30 Location: [facility] Re09/10/15 SEX: F Status: DEP ER SPEC: [id number] JIAN: 09/10/15-1010 [facility] DR: Mio Woods MD REQ: [id number] RECD: 09/10/15-1249 STATUS: COMP [facility] DR: Sabina Thapa MD _ SOURCE: THROAT SPDESC: ORDERED: Throat Beta Str Procedure Result Reported Site Throat Beta Strep Culture Final 09/12/15- 0910 ML Negative For Group A Beta Streptococcus * ML - MAIN LAB ([facility]) . END OF REPORT * ML=Testing performed at Main Lab DEPARTMENT OF PATHOLOGY, [address] [place] [address] Ibrahima Toney M.D. Director [facility] # [id number] 25 NO BETA STREPTOCOCCI ISOLATED 26 POST GLUCOLA 27 NO SPECIMEN RECEIVED 28 NO SPECIMEN RECEIVED 29 PENDING; TEST PERFORMED ON MONDAYS AND THURSDAYS 30 HBsAg not detected; does not exclude the possibility of exposure to or early acute infections with HBV. 31 Negative <135 Equivocal 135 - 165 Positive >165 A positive result generally indicates exposure to the pathogen or administration of specific immunoglobulins, but it is not indication of active infection or stage of disease. 32 No reportable results 33 Environmental Exposure: WHO Recommendation <20 Occupational Exposure: OSHA Lead Std 40 ADRIANNE 30 Detection Limit=1 34 Organism 1 ! URETHRAL JENNIFER Quantity ! > 100,000 CFU/mL SPECIMEN IS A MIX OF GRAM POSITIVE ORGANISMS CONSISTENT WITH SKIN/VAGINAL CONTAMINATION. SUGGEST REPEAT SPECIMEN IF CLINICALLY INDICATED. 35 GRAM STAIN ! GRAM STAIN INDICATES NORMAL GENITAL JENNIFER ! MANY GR POS. BACILLI SUGGESTIVE OF LACTOBACILLUS SP. ! NO WHITE BLOOD CELLS ! 36 GENITAL JENNIFER 37 Acceptable specimens for this test are male urethral swab, endocervical swab and liquid based pap specimens, vaginal swabs in APTIMA transports and first void urine. See online Directory of Services for test number for rectal and pharyngeal specimens. Performed at: - [facility] [id number] Mechanical Shovel Operator: Sade Villanueva MD, Phone: [phone] 38 Values >=10.0 IU/mL are positive for IgG antibodies to rubella virus and are considered IMMUNE. 39 NO BETA STREPTOCOCCI ISOLATED 40 Test(s) [id number] Jannaroach, [place]ese; 784102- [id number] Nikia Lagunas were developed and had performance characteristics determined by [facility]. These tests have not been cleared or approved by the U.S. Food and Drug Administration. The FDA has determined that such clearance or approval is not necessary. These tests are used for clinical purposes. These should not be regarded as investigational or for research. 41 Allergens in this mix are: Blue mussel Fish Sagle Shrimp Tuna 42 Performed at: - [facility] [id number] Mechanical Shovel Operator: Herb Bergeron MD, Phone: [phone] 43 Levels of Specific IgE Class Description of Class -- ----- < 0.10 0 Negative 0.10 - 0.31 0/I Equivocal/Low 0.32 - 0.55 I Low 0.56 - 1.40 II Moderate 1.41 - 3.90 III High 3.91 - 19.00 IV Very High 19.01 - 100.00 V Very High >100.00 Very High 44 Note: Persistent reduction for 3 months or more in an eGFR <60 mL/min/1.73 m2 defines CKD. Patients with eGFR values >/=60 mL/min/1.73 m2 may also have CKD if evidence of persistent proteinuria is present. The original MDRD equation for estimated GFR is not valid for patients less than 18 years of age. Additional information may be found at www.kdoqi.org. 45 CYTOLOGY SCREENER Screened by: Clarissa Alberts SCT(ASCP) PAP: FINAL REPORT SPECIMEN ADEQUACY: SPECIMEN SATISFACTORY FOR INTERPRETATION ADEQUATE ENDOCERVICAL/TRANSFORMATION ZONE NOTED INTERPRETATION: NEGATIVE FOR INTRAEPITHELIAL LESION OR MALIGNANCY COMMENT: THINPREP PREPARED PAP SLIDE # Prepared in the Cytology laboratory from the ThinPrep sample is 1 ThinPrep smear. PAP ACCESSI QUESTIONNAIRE 10/01 PERTINENT CLINICAL HISTORY FOR PAP (MUSHROOM GROWING SUPERVISOR) CYTOLOGY (Check all that apply): ? N Post ? N Menopause? N LMP date: 09/22 Last Pap: at [facility]? Y Abnormal Pap? N If Yes, date: Post Hysterectomy? Is cervix present? Y If patient had related surgical procedure: Related Therapy: IUD: Oral Contraception: Y Depo: Nova Ring: Hormone Replacement: Reimbursement Coordinator Patient Number: [id number] Significant Clinical History: V72.31 ===== DISCLAIMER: The Pap smear is a screening test and not a diagnostic procedure. False negative and false positive results can and do occur for a number of reasons. Regular screening provides an aid in detecting treatable cervical abnormalities, but should not be used as the only means for detecting cervical dysplasia and carcinoma. ----- Signed Electronically signed CLARISSA ALBERTS 10/14/14 7502 ----- 46 08/07/14 [email or web address] Deleted by Reflex [facility] 47 Note: Persistent reduction for 3 months or more in an eGFR <60 mL/min/1.73 m2 defines CKD. Patients with eGFR values >/=60 mL/min/1.73 m2 may also have CKD if evidence of persistent proteinuria is present. The original MDRD equation for estimated GFR is not valid for patients less than 18 years of age. Additional information may be found at www.kdoqi.org. 48 COLONY COUNT ! 10,000 - 20,000 CFU/ml Organism 1 ! URETHRAL JENNIFER 49 Approximate Gestational Age and Total BHCG Range: 0.2 - 1 Week........................5-50 mIU/mL 1 - 2 Weeks.....................50- 500 mIU/mL 2 - 3 Weeks..................100-5,000 mIU/mL 3 - 4 Weeks.................500-10,000 mIU/mL 4 - 5 Weeks...............1,000-50, 000 mIU/mL 5 - 6 Weeks.............10,000-100,000 mIU/mL 6 - 8 Weeks.............15,000-200,000 mIU/mL 2 - 3 Months............10,000-100, 000 mIU/mL 50 Note: Persistent reduction for 3 months or more in an eGFR <60 mL/min/1.73 m2 defines CKD. Patients with eGFR values >/=60 mL/min/1.73 m2 may also have CKD if evidence of persistent proteinuria is present. The original MDRD equation for estimated GFR is not valid for patients less than 18 years of age. Additional information may be found at www.kdoqi.org. 51 FIRST MORNING SPECIMENS GENERALLY CONTAIN THE HIGHEST CONCENTRATION OF HCG AND ARE RECOMMENDED FOR EARLY DETECTION OF . 52 RUN DATE: 08/08/13 [facility] LAB LIVE PAGE 1 RUN TIME: [id number] [place] [id number] Specimen Inquiry ----- Name: MYRTLE MELENDEZ : [address]: Manuela Holland Acct: [id number] Unit: [id number] AGE: 28 Location: [facility] Re SEX: F Status: REG REF ----- SPEC: [id number] JIAN: 08/06/13-[address]: Manuela Benito [facility] REQ: [id number] RECD: 08/06/13 STATUS: COMP _ SOURCE: THROAT SPDESC: ORDERED: Throat Culture QUERIES: Medent Number [id number] ----- Procedure Result Verified Site ----- Throat Culture Final 08/08/13-1315 ML Organism 1 NORMAL JENNIFER Throat cultures are clinically indicated to detect the presence of group A strep, arcanobacterium and yeast. In certain cases, predominating organisms will be reported. ----- END OF REPORT * ML=Testing performed at Main Lab DEPARTMENT OF PATHOLOGY, [address] [place] [address] Ibrahima Toney M.D. Director [facility] Permit # [id number] 53 Because ethnic data is not always readily available, this report includes an eGFR for both -Americans and non- Americans. The National Kidney Disease Education Program (NKDEP) does not endorse the use of the MDRD equation for patients that are not between the ages of 18 and 70, are , have extremes of body size, muscle mass, or nutritional status, or are non- or non-. According to the National Kidney Foundation, irrespective of diagnosis, the stage of the disease is based on the level of kidney function: Stage Description GFR(mL/min/1.73 m(2)) 1 Kidney damage with normal or decreased GFR 90 2 Kidney damage with mild decrease in GFR 60- 89 3 Moderate decrease in GFR 30-59 4 Severe decrease in GFR 15-29 5 Kidney failure <15 (or dialysis) 54 RUN DATE: 03/12/13 [facility] LAB LIVE PAGE 1 RUN TIME: [address] [place], [place] [address] Specimen Inquiry ----- Name: MYRTLE MELENDEZ : [address]: Heaven Vivas NP Acct: [id number] Unit: [id number] AGE: 27 Location: [facility] Re SEX: F Status: REG REF ----- SPEC: [id number] JIAN: 03/10/[address]: Heaven Vivas VICE CHAIRMAN REQ: [id number] RECD: 03/10/13 STATUS: COMP _ SOURCE: URINE SPDESC: ORDERED: Urine Culture QUERIES: Medent Number [id number] Urine Source: Random ----- Procedure Result Verified Site ----- Urine Culture Final 03/12/13-1055 ML Organism 1 NORMAL JENNIFER [place] Count 1-10,000 (Few) CFU/ML ----- END OF REPORT * ML=Testing performed at Main Lab DEPARTMENT OF PATHOLOGY, [address] [place] [address] Ibrahima Toney M.D. Director [facility] Permit # [id number] FIDEL HOWARD IS READY TO BRUCE AT 1642 01/29/13 by [email or web address] 56 PENDING; TEST PERFORMED ON MONDAYS AND THURSDAYS 57 NO GROUP B STREPTOCOCCI ISOLATED 58 NEGATIVE FOR CHLAMYDIA TRACHOMATIS BY DNA HYBRIDIZATION ASSAY. THIS TEST IS APPROVED FOR OCULAR AND UROGENITAL SITES ONLY. 59 NEGATIVE FOR NEISSERIA GONORRHOEAE BY DNA HYBRIDIZATION ASSAY. THIS METHOD IS APPROVED FOR UROGENITAL SITES ONLY. 60 POST GLUCOLA 61 NO SPECIMEN RECEIVED 62 NO SPECIMEN RECEIVED 63 HBsAg not detected; does not exclude the possibility of exposure to or early acute infections with HBV. 64 PENDING; TEST PERFORMED ON MONDAYS AND THURSDAYS 65 Values >=10.0 IU/mL are positive for IgG antibodies to rubella virus and are considered IMMUNE. 66 No reportable results 67 The Centers for Disease Control and Prevention states blood lead levels less than 10 ug/dL in children have been associated with numerous adverse health effects. [facility] Guidelines: Blood lead levels in the range 5-9 ug/dL have been associated with adverse health effects in children aged 6 years and younger. Environmental Exposure: WHO Recommendation <20 Occupational Exposure: OSHA Lead Std 40 Detection Limit=1 68 COLONY COUNT ! 10,000 - 20,000 CFU/ml Organism 1 ! URETHRAL JENNIFER 69 Nonimmune <0.91 Equivocal 0.91 - 1.09 Immune >1.09 Performed at: [facility] Lab[address] [id number] Mechanical Shovel Operator: Sade Villanueva MD, Phone: [phone] 70 NEGATIVE FOR CHLAMYDIA TRACHOMATIS BY DNA HYBRIDIZATION ASSAY. THIS TEST IS APPROVED FOR OCULAR AND UROGENITAL SITES ONLY. 71 NEGATIVE FOR NEISSERIA GONORRHOEAE BY DNA HYBRIDIZATION ASSAY. THIS METHOD IS APPROVED FOR UROGENITAL SITES ONLY. 72 GENITAL JENNIFER 73 GRAM STAIN ! GRAM STAIN INDICATES NORMAL GENITAL JENNIFER ! MODERATE GR POS. BACILLI SUGGESTIVE OF LACTOBACILLUS ! SP. 74 * MALES: < 5.0 MIU/ML NON FEMALES < 5.0 MIU/ML APPROX GESTATIONAL AGE APPROX HCG RANGE 0-1 WEEK < 5.0-50 1-2 WEEKS 50-500 2-3 WEEKS 100-5000 3-4 WEEKS 500-10,000 1-2 MONTHS 10,000-200,000 2-3 MONTHS 15,000-100,000 PLEASE NOTE: The intended use of this assay is the quantitative determination of HCG in human serum or plasma for the early detection of . These assays should not be used to diagnose any condition unrelated to . If an HCG level is inconsistent with, or unsupported by, clinical evidence, results should be confirmed by an alternate HCG method. . 75 ------- RUN DATE: 05/11/12 [facility] NMI LIVE PAGE 1 RUN TIME: 1450 Specimen Inquiry RUN USER: INTERFACE ----- Name: MYRTLE MELENDEZ Status: REG REF Re20/09 Age/Sex: 26/F Unit#: [id number] Location: [facility]. : [birth year] ----- SPEC #: [id number] JIAN: 04/20/12 STATUS: BARRY REQ #: [id number] RECD: 04/20/12 [facility] DR: Heaven Padilla NP SOURCE: MISC ENTR: 04/20/121622 OT DR: AVC: TONGUE ORDERED: FUNGAL CULT [facility] QUERIES: MEDENT REQUISITION # [id number] ACT WKST: 05/11/12 #1 ----- Procedure Result Verified Site ----- > FUNGAL CULT OTHER SOURCES Final 05/11/12-1450 ML FINAL: NO GROWTH OF MYCOTIC ORGANISMS AFTER 3 WEEKS ----- - [facility] Permit #[id number] [address] [place] [address] ----- DEPARTMENT OF PATHOLOGY, [address] [place] [address] [facility] Permit #[id number] Ibrahima Toney M.D. Director Rhina Douglas M.D. Retail Leasing Agent ----- 76 PLEASE NOTE NEW REFERENCE RANGE. 77 Negative in normal Individuals. May be negative in dermatitis herpatiformis or celiac disease patients adhering to a gluten free diet. Laboratory developed test. Test Performed by: [place] [address] Track Announcer: Isaiah Rivera III, M.D. 78 -- REFERENCE VALUE -- <20.0 (Negative) Test Performed by: [place] [address] Track Announcer: Isaiah Rivera III, M.D. 79 -- REFERENCE VALUE -- <20.0 (Negative) Test Performed by: [place] [address] Track Announcer: Isaiah Rivera III, M.D. 80 Test Performed by: [address] [address] Track Announcer: Isaiah Rivera III, M.D. 81 -- REFERENCE VALUE -- <0.75 (Negative) 0.75-0.99 (Equivocal) >=1.00 ( Positive) Test Performed by: [place] [address] Track Announcer: Isaiah Rivera III, M.D. 82 Anion gap measurement may be of limited value in the presence of any alkalosis, especially in a combined acid base disorder. . 83 A metabolite of Naproxen, O-desmethylnaproxen, has been shown to interfere with the Jendrassik-Goodhue method for measuring total bilirubin. Samples from patients who have taken Naproxen have shown spurious elevation in total bilirubin levels. 84 Because ethnic data is not always readily available, this report includes an eGFR for both -Americans and non- Americans. The National Kidney Disease Education Program (NKDEP) does not endorse the use of the MDRD equation for patients that are not between the ages of 18 and 70, are , have extremes of body size, muscle mass, or nutritional status, or are non- or non-. According to the National Kidney Foundation, irrespective of diagnosis, the stage of the disease is based on the level of kidney function: Stage Description GFR(mL/min/1.73 m(2)) 1 Kidney damage with normal or decreased GFR 90 2 Kidney damage with mild decrease in GFR 60- 89 3 Moderate decrease in GFR 30-59 4 Severe decrease in GFR 15-29 5 Kidney failure <15 (or dialysis) 85 FIRST MORNING SPECIMENS GENERALLY CONTAIN THE HIGHEST CONCENTRATION OF HCG AND ARE RECOMMENDED FOR EARLY DETECTION OF . 86 Note: Persistent reduction for 3 months or more in an eGFR <60 mL/min/1.73 m2 defines CKD. Patients with eGFR values >/=60 mL/min/1.73 m2 may also have CKD if evidence of persistent proteinuria is present. The original MDRD equation for estimated GFR is not valid for patients less than 18 years of age. Additional information may be found at www.kdoqi.org. 87 Anion gap measurement may be of limited value in the presence of any alkalosis, especially in a combined acid base disorder. . 88 A metabolite of Naproxen, O-desmethylnaproxen, has been shown to interfere with the Jendrassik-Goodhue method for measuring total bilirubin. Samples from patients who have taken Naproxen have shown spurious elevation in total bilirubin levels. 89 Because ethnic data is not always readily available, this report includes an eGFR for both -Americans and non- Americans. The National Kidney Disease Education Program (NKDEP) does not endorse the use of the MDRD equation for patients that are not between the ages of 18 and 70, are , have extremes of body size, muscle mass, or nutritional status, or are non- or non-. According to the National Kidney Foundation, irrespective of diagnosis, the stage of the disease is based on the level of kidney function: Stage Description GFR(mL/min/1.73 m(2)) 1 Kidney damage with normal or decreased GFR 90 2 Kidney damage with mild decrease in GFR 60- 89 3 Moderate decrease in GFR 30-59 4 Severe decrease in GFR 15-29 5 Kidney failure <15 (or dialysis) 90 NEGATIVE FOR GROUP A BETA STREPTOCOCCUS 91 NORMAL ASO BY SCREENING TEST *TITERS 400 OR MORE ARE DEFINITELY ELEVATED * PLEASE NOTE CHANGE OF METHOD Procedures Date CPT Code Description Status 05/05/2018 29380 EGD With Biopsy Completed 01/23/2018 11240 Event Monitor Inter/Review Only Completed 01/08/2018 17964 EKG-Tracing And Report Completed 01/01/2018 91961 Stress Test Interpre And Report Only Completed 01/01/2018 93310 Stress Test Physician Super Only Completed 01/01/2018 48568 EKG Interpretation And Report Only Completed 01/15/2016 37635 Post- Care Only Completed 11/27/2015 27118 Section Only Completed 11/27/2015 50472 Non-Stress Test (NST) Completed 11/22/2015 73060 Antepartum 7 Or More Total Office Visit Completed 11/16/2015 30997 Antepartum 7 Or More Total Office Visit Completed 11/08/2015 20808 Antepartum 7 Or More Total Office Visit Completed 11/01/2015 48659 Antepartum 7 Or More Total Office Visit Completed 10/25/2015 09391 Antepartum 7 Or More Total Office Visit Completed 10/10/2015 88310 Antepartum 7 Or More Total Office Visit Completed 09/25/2015 46558 Antepartum 7 Or More Total Office Visit Completed 07/26/2015 08703 Antepartum 7 Or More Total Office Visit Completed 03/15/2013 08486 Post- Care Only Completed 01/29/2013 24924 Vaginal Delivery [facility] Completed 01/28/2013 60437 Anesthesia,Neuraxial Labor Completed 01/22/2013 27046 Non-Stress Test (NST) Completed 01/20/2013 85633 Antepartum 7 Or More Total Office Visit Completed 01/13/2013 17522 Antepartum 7 Or More Total Office Visit Completed 01/06/2013 61626 Antepartum 7 Or More Total Office Visit Completed 12/30/2012 16984 Antepartum 7 Or More Total Office Visit Completed 12/23/2012 35759 Antepartum 7 Or More Total Office Visit Completed 12/16/2012 43998 Antepartum 7 Or More Total Office Visit Completed 12/09/2012 13700 Antepartum 7 Or More Total Office Visit Completed 11/25/2012 01116 Antepartum 7 Or More Total Office Visit Completed 11/11/2012 10150 Antepartum 7 Or More Total Office Visit Completed 11/04/2012 96913 Antepartum 7 Or More Total Office Visit Completed 10/06/2012 09386 Antepartum 7 Or More Total Office Visit Completed 09/03/2012 32425 Antepartum 7 Or More Total Office Visit Completed 08/19/2012 68038 Antepartum 7 Or More Total Office Visit Completed 08/03/2012 21886 Antepartum 7 Or More Total Office Visit Completed 07/15/2012 40784 Antepartum 7 Or More Total Office Visit Completed 06/29/2012 04276 Antepartum 7 Or More Total Office Visit Completed 04/01/2011 16202 Tympanometry Completed Encounters Type Date Location Provider CPT E/M Dx Office Visit 05/22/2018 8:15[place] [address] K21.0 K22.70 K44.9 K29.50 Office Visit 04/17/2018 10:15[place] [address] K22.70 R07.0 B96.81 Office Visit 04/07/2018 8:30a Family Medicine Yuliana Argueta PNP-BC, 18842 Z00.01 CIVIL PROJECT ENGINEER, Ibclc D22.9 E03.9 K22.70 Z13.220 Z13.1 L21.0 Office Visit 01/08/2018 2:30p [place] [address] R94.31 Office Visit 05/22/2017 9:30a Family Medicine Yuliana Argueta, 89609 E03.9 PNP-BC, CIVIL PROJECT ENGINEER, Ibclc Office Visit 11/05/2016 2:45p Family Medicine Yuliana Argueta, 48891 S92.592A PNP-BC, CIVIL PROJECT ENGINEER, Ibclc W22.03xA Y92.013 Office Visit 10/02/2016 4:00p Family Medicine Yuliana Argueta PNP-BC, 78983 N61.0 CIVIL PROJECT ENGINEER, Ibclc Office Visit 07/25/2016 1:00p Family Medicine Yuliana Argueta PNP-BC, 69812 B34.9 CIVIL PROJECT ENGINEER, Ibclc E03.9 Office Visit 04/04/2016 1:00p Family Medicine Adali Amaya M.D. 06121 B34.9 Office Visit 10/06/2015 11:45a Family Medicine Adali Amaya M.D. 84459 M54.5 Office Visit 09/12/2015 2:15p [place] [address] M54.5 Office Visit 09/06/2015 10:15a Family Medicine Mellisa Coy M.D. 45079 J06.9 B30.9 J02.9 Office Visit 04/25/2015 2:00p [place] [address] V70.0 V72.31 Office Visit 03/22/2015 11:00a Family Medicine Manuela Benito [facility] 44827 V72.42 244.8 Office Visit 01/16/2015 11:30a Family Medicine Manuela Benito CIVIL PROJECT ENGINEER 28035 786.2 462 Plan of Care Future Appointment(s):11/12/2018 3:30 pm - Hayden Stockton MD at GI09/02/2018 - Dante Song MDJ06.9 Acute upper respiratory infection, unspecifiedNew Medication:Mucinex 600 mgSaline Nasal Pace 0.65 %Z23 Encounter for immunizationImmunizations/Injections:Influenza Vaccine (Fluzone) Age 3 And Older
[2018-09-10 10:25] VITALS: BP 107/70
--- NOTE | 2018-09-10 10:41 | UC ---
Respiratory Complaint HPI - HPI Summary HPI Summary: 33-year-old female presents with approximately 2 week history of cough, nasal congestion, sinus pressure, and bilateral ear fullness. States she was evaluated by her primary care provider 09/02/2018 and diagnosed with a viral URI. She states that her symptoms have progressively worsened over the past week. She has not used any fuuo-xrc-yfommqy medications. Denies fever, chills , dizziness, vertigo, sore throat, chest pain, shortness of breath, abdominal pain, nausea, or vomiting. - History of Current Complaint Chief Complaint: UCRespiratory Stated Complaint: COUGH,SINUS PRESSURE Time Seen by Provider: 09/10/18 10:31 Hx Obtained From: Patient Hx Last Menstrual Period: 08/28/18 Pain Intensity: 5 - Allergies/Home Medications Allergies/Adverse Reactions: Allergies Allergy/AdvReac Type Severity Reaction Status Date / Time No Known Allergies Allergy Verified 09/10/18 10:18 Home Medications: Home Medications Acetaminophen [Non-Aspirin Jr Strength] 160 mg PO Q4H PRN 09/10/18 [History Confirmed 09/10/18] Levothyroxine TAB* [Synthroid TAB*] 88 mcg PO DAILY 09/10/18 [History Confirmed 09/10/18] PMH/Surg Hx/FS Hx/Imm Hx Previously Healthy: Yes Endocrine History: Hypothyroidism - Surgical History Surgical History: Yes Surgery Procedure, Year, and Place: - Family History Known Family History: Positive: Non-Contributory - Social History Occupation: Employed Full-time Lives: With Family Alcohol Use: Rare Substance Use Type: None Smoking Status (MU): Never Smoked Tobacco Review of Systems All Other Systems Reviewed And Are Negative: Yes Constitutional: Positive: Fatigue. Negative: Fever, Chills Eyes: Negative: Drainage, Eye Redness ENT: Positive: Ear Ache, Nasal Discharge, Sinus Congestion, Sinus Pain/ Tenderness. Negative: Sore Throat Respiratory: Positive: Cough. Negative: Shortness Of Breath Cardiovascular: Negative: Palpitations, Chest Pain Gastrointestinal: Negative: Abdominal Pain, Vomiting, Nausea Is Patient Immunocompromised?: No Physical Exam - Summary Physical Exam Summary: GENERAL APPEARANCE: Well developed, well nourished, alert and cooperative, and appears to be in no acute distress. EYES: Conjunctiva clear. No discharge. Vision is grossly intact. EARS: External auditory canals and tympanic membranes clear, hearing grossly intact. NOSE: Mild-moderate nasal congestion, inflamed nasal mucosa, no discharge. Tenderness to maxillary sinuses with percussion. THROAT: Pharyngeal erythema with cobblestoning. No tonsilar edema or exudate. Oral cavity normal. Teeth and gingiva in good general condition. NECK: Neck supple, non-tender without lymphadenopathy. CARDIAC: Normal S1 and S2. No S3, S4 or murmurs. Rhythm is regular. There is no peripheral edema, cyanosis or pallor. Extremities are warm and well perfused. Capillary refill is less than 2 seconds. LUNGS: Clear to auscultation and percussion without rales, rhonchi, wheezing or diminished breath sounds. ABDOMEN: Positive bowel sounds. Soft, nondistended, nontender. No guarding or rebound. No masses or hepatosplenomegally. SKIN: Skin normal color, texture and turgor with no lesions or eruptions. Triage Information Reviewed: Yes Vital Signs: Initial Vital Signs Temp 98.3 F 09/10/18 10:20 Pulse 82 09/10/18 10:20 Resp 18 09/10/18 10:20 BP 107/70 09/10/18 10:20 Pulse Ox 100 09/10/18 10:20 Vital Signs Reviewed: Yes UC Diagnostic Evaluation - Laboratory O2 Sat by Pulse Oximetry: 100 Respiratory Course/Dx - Course Course Of Treatment: 33-year-old female presents with approximately 2 week history of cough, nasal congestion, sinus pressure, and bilateral ear fullness. States she was evaluated by her primary care provider 09/02/2018 and diagnosed with a viral URI. She states that her symptoms have progressively worsened over the past week. She has not used any dgwr-kgt-qciilou medications. Denies fever, chills, dizziness, vertigo, sore throat, chest pain , shortness of breath, abdominal pain, nausea, or vomiting. Afebrile. Vital signs stable. Exam reveals mild to moderate nasal congestion, maxillary sinus tenderness, pharyngeal erythema with cobblestoning, and a nonproductive cough. Considering the duration of her symptoms we will treat for acute sinus infection with doxycycline 100 mg twice a day 7 days as well as symptomatic treatment. We'll also provide her with a prescription for Tessalon Perles 1 cap every 8 hours as needed for cough. She is to follow-up with primary care provider in 7 days if symptoms persist. Warning symptoms were reviewed with the patient. Verbalizes understanding and agrees with plan of care. - Differential Dx/Diagnosis Differential Diagnosis/HQI/PQRI: Bronchitis, Influenza, Lower Resp Infection, Sinusitis Provider Diagnosis: Acute maxillary sinusitis, Cough Discharge - Sign-Out/Discharge Documenting (check all that apply): Patient Departure All imaging exams completed and their final reports reviewed: No Studies - Discharge Plan Condition: Stable Disposition: HOME Prescriptions: Benzonatate CAP* [Tessalon 100 MG CAP*] 100 mg PO TID PRN #30 cap PRN Reason: Cough Doxycycline Hyclate 100 mg PO BID #14 tablet Fluticasone NASAL SPRAY 50MCG* [Flonase NASAL SPRAY 50MCG*] 2 spray BOTH NARES DAILY #1 btl Patient Education Materials: Sinusitis (ED) Referrals: Yuliana Argueta NP [Primary Care Provider] - 7 Days (If no improvement in symptoms.) Additional Instructions: Your history and exam are consistent with a sinus infection. Considering the duration of your symptoms and the progressive worsening of symptoms we will treat the infection with an antibiotic. Start doxycycline 100 mg 1 tab twice a day for 7 days. Drink plenty of fluids to avoid dehydration. Use a saline rinse kit such as Neti Pot or NeilMed at least twice a day to help thin secretions and promote drainage of the sinuses. Use fluticasone (Flonase) nasal spray 2 sprays each nostril once daily. Use an over the counter decongestant such as Sudafed according to directions to help with congestion. Take over the counter acetaminophen (Tylenol) or ibuprofen (Advil, Motrin) according to directions as needed for pain or fever. Take Tessalon Perles 1 cap every 8 hours as needed for cough. Follow up with your primary care provider in 7 days if symptoms persist. Seek immediate medical attention in the emergency room if you have fever greater than 100.5 F despite taking acetaminophen or ibuprofen, have chest pain , difficulty breathing, or have any worsening of symptoms. - Billing Disposition and Condition Condition: STABLE Disposition: Home
== END 2018-09-10 11:01 | disposition home or self-care (01) ==
LOC: UCCORT 10:10
DX: J01.00 Acute maxillary sinusitis, unspecified (principal); R05 Cough; E03.9 Hypothyroidism, unspecified
CPT/HCPCS: 99212; G0463

== ENCOUNTER 2019-12-12 13:14 | Emergency (ER) | payer BC ==
--- NOTE | 2019-12-12 14:07 | UC ---
Respiratory Complaint HPI - HPI Summary HPI Summary: 34-year-old female presents complaining progressively worsening sinus symptoms over the past week. States symptoms were initially mild with nasal congestion, clear nasal drainage, post-nasal drip, mild sore throat, and mild sinus pressure. Reports the nasal drainage has stopped and the congestion and pressure have been worsening. Over the past 2 days started with a dry non- productive cough and mild SOB feeling as if she can't get a full breath. No recent travel or known exposure to persons isolated for or diagnosed with COVID- 19. Denies fever, chills, ear pain, dysphagia, chest pain, abdominal pain, nausea, vomiting, or diarrhea. - History of Current Complaint Chief Complaint: UCGeneralIllness Stated Complaint: SINUS COMPLAINT, CHEST CONGESTION Time Seen by Provider: 12/12/19 14:04 Hx Obtained From: Patient Hx Last Menstrual Period: 12/10/19 - Allergies/Home Medications Allergies/Adverse Reactions: Allergies Allergy/AdvReac Type Severity Reaction Status Date / Time No Known Allergies Allergy Verified 09/10/18 10:18 Home Medications: Home Medications Fluticasone NASAL SPRAY 50MCG* [Flonase NASAL SPRAY 50MCG*] 2 spray BOTH NARES DAILY #1 btl 09/10/18 [Rx] Levothyroxine TAB* [Synthroid TAB*] 88 mcg PO DAILY 09/10/18 [History Confirmed 09/10/18] Albuterol HFA INHALER* [Ventolin HFA Inhaler*] 2 puff INH Q6H PRN #1 mdi [Rx] Amoxicillin/Clavulanate TAB* [Augmentin TAB 875*] 875 mg PO BID #20 tab [Rx] PMH/Surg Hx/FS Hx/Imm Hx Endocrine History: Thyroid Disease - Surgical History Surgical History: Yes Surgery Procedure, Year, and Place: - Family History Known Family History: Negative: Diabetes - Social History Occupation: Employed Full-time Lives: With Family Alcohol Use: Rare Substance Use Type: None Smoking Status (MU): Never Smoked Tobacco Review of Systems All Other Systems Reviewed And Are Negative: Yes Constitutional: Negative: Fever, Chills Skin: Negative: Rash Eyes: Negative: Drainage, Eye Redness ENT: Positive: Sore Throat, Nasal Discharge, Sinus Congestion, Sinus Pain/ Tenderness. Negative: Ear Ache Respiratory: Positive: Shortness Of Breath, Cough Cardiovascular: Negative: Chest Pain Gastrointestinal: Negative: Abdominal Pain, Vomiting, Diarrhea, Nausea Physical Exam - Summary Physical Exam Summary: GENERAL APPEARANCE: Well developed, well nourished, alert and cooperative, and appears to be in no acute distress. EYES: Conjunctiva clear. No drainage. EARS: External auditory canals and tympanic membranes clear, hearing grossly intact. NOSE: Moderate nasal congestion. No nasal discharge. Maxillary sinus tenderness. THROAT: Pharyngeal cobblestoning with PMD. No tonsilar inflammation, swelling, exudate, or lesions. Uvula midline. NECK: Neck supple, non-tender without lymphadenopathy. CARDIAC: Normal S1 and S2. No S3, S4 or murmurs. Rhythm is regular. There is no peripheral edema, cyanosis or pallor. Extremities are warm and well perfused. Capillary refill is less than 2 seconds. Peripheral pulses intact. LUNGS: Clear to auscultation without rales, rhonchi, wheezing or diminished breath sounds. Dry, non-productive cough. ABDOMEN: Positive bowel sounds. Soft, nondistended, nontender. No guarding or rebound. No masses or hepatosplenomegally. MUSKULOSKELETAL: ROM intact to all extremities. No joint erythema or tenderness. Normal muscular development. Normal gait. SKIN: Skin normal color, texture and turgor with no lesions or eruptions. Triage Information Reviewed: Yes Vital Signs Reviewed: Yes Respiratory Course/Dx - Course Course Of Treatment: 34-year-old female presents complaining progressively worsening sinus symptoms over the past week. States symptoms were initially mild with nasal congestion, clear nasal drainage, post-nasal drip, mild sore throat, and mild sinus pressure. Reports the nasal drainage has stopped and the congestion and pressure have been worsening. Over the past 2 days started with a dry non- productive cough and mild SOB feeling as if she can't get a full breath. No recent travel or known exposure to persons isolated for or diagnosed with COVID- 19. Denies fever, chills, ear pain, dysphagia, chest pain, abdominal pain, nausea, vomiting, or diarrhea. Afebrile. Vital signs stable. Patient moderate nasal congestion, maxillary sinus tenderness, normal TMs, general cobblestoning and postnasal drip without tonsillar swelling or exudate, no cervical lymphadenopathy, clear bilateral breath sounds, dry nonproductive cough , and otherwise unremarkable exam. Discussed with patient that her symptoms were consistent with an upper respiratory infection versus sinusitis and with her progressively worsening symptoms will treat her with a course of Augmentin 875 mg twice a day 10 days as well as recommend symptomatic treatment. We'll also provide her with an albuterol inhaler for her shortness of breath. She is to follow-up with her primary care provider in 5-7 days if symptoms are not improving. Anticipatory guidance and warning symptoms were reviewed with the patient. Verbalizes understanding and agrees with plan of care. - Differential Dx/Diagnosis Differential Diagnosis/HQI/PQRI: Bronchitis, Lower Resp Infection, Sinusitis, Other - URI, pharyngitis Provider Diagnosis: URI with cough and congestion Discharge ED - Sign-Out/Discharge Documenting (check all that apply): Patient Departure All imaging exams completed and their final reports reviewed: No Studies - Discharge Plan Condition: Stable Disposition: HOME Prescriptions: Albuterol HFA INHALER* [Ventolin HFA Inhaler*] 2 puff INH Q6H PRN #1 mdi PRN Reason: Sob/Wheezing Amoxicillin/Clavulanate TAB* [Augmentin TAB 875*] 875 mg PO BID #20 tab Patient Education Materials: Upper Respiratory Infection (ED) Referrals: Yuliana Argueta NP [Primary Care Provider] - 5 Days Additional Instructions: Your history and exam are consistent with an upper respiratory infection. Considering the duration and worsening of symptoms we will start you on an antibiotic to treat the infection. Start Augmentin 875 mg 1 tab twice a day for 10 days. Take with food to avoid upset stomach. Be sure to complete the entire course even if feeling better. Drink plenty of fluids to avoid dehydration especially if you are running any fever. Use a saline rinse kit such as Neti Pot or NeilMed at least twice a day to help thin secretions and promote drainage of the sinuses. Use fluticasone (Flonase) nasal spray 2 sprays each nostril once daily. Take over the counter acetaminophen (Tylenol) or ibuprofen (Advil, Motrin) according to directions as needed for pain or fever. Use salt water gargles several times a day if you have a sore throat. You may also use Chloraseptic spray or Cepacol lonzenges according to directions which contain a numbing medication and can provide some temporary relief from your sore throat. Use the albuterol inhaler prescribed to you. Take 2 puffs every 6 hours as needed for shortness of breath. Follow up with your primary care provider in 5-7 days if symptoms persist. Seek immediate medical attention in the emergency room if you have fever greater than 100.5 F despite taking acetaminophen or ibuprofen, have chest pain , difficulty breathing, are unable to swallow, or have any worsening of symptoms. - Billing Disposition and Condition Condition: STABLE Disposition: Home
[2019-12-12 14:11] VITALS: BP 131/67
== END 2019-12-12 14:33 | disposition home or self-care (01) ==
LOC: UCCORT 13:14
DX: J06.9 Acute upper respiratory infection, unspecified (principal); R05 Cough; R09.89 Other specified symptoms and signs involving the circulatory and respiratory systems; E07.9 Disorder of thyroid, unspecified; Z79.890 Hormone replacement therapy
CPT/HCPCS: 99212; G0463